=== PATIENT | female | born 1995 | race Caucasian/White ===

== ENCOUNTER 2022-05-20 11:32 | Outpatient (REF) | payer OTHER, SELFPAY ==
[2022-05-20 14:01] LABS: MANUAL DIFF FLAG NO
[2022-05-20 14:07] LABS: Basophils Percent Auto 0.3 % (0-2); Eosinophils Absolute Auto 0.2 X10*3/uL (0.0-0.4); Hematocrit 41.9 % (37.0-47.0); Hemoglobin 13.8 g/dl (12.0-16.0); Imm Gran Abs Auto 0.02 X10*3/uL (0.00-0.03); Imm Gran Pct Auto 0.2 % (0.0-0.4); Lymphocytes Absolute Auto 3.2 X10*3/uL (1.2-4.9); Mean Corpuscular HGB Conc 32.9 g/dl (31.0-35.0); Mean Corpuscular Hemoglobin 29.6 pg (27.0-33.0); Mean Corpuscular Volume 89.7 fL (80.0-98.0); Mean Platelet Volume 12.8 fL (9.4-12.3); Monocytes Absolute Auto 0.7 X10*3/uL (0.1-1.2); Monocytes Percent Auto 6.6 % (2-11); Neutrophils Absolute Auto 6.6 x10*3/uL (2.0-8.3); Neutrophils Percent Auto 60.9 % (45-73); Platelet Count 186 X10*3/uL (160-400); Red Blood Count 4.67 X10*6/uL (4.20-5.50); Red Cell Distribution Width 12.3 % (11.0-16.0); White Blood Count 10.8 X10*3/uL (4.8-10.8)
[2022-05-20 14:19] LABS: Alanine Aminotransferase 24 U/L (0-31); Anion Gap 13 (12-20); Aspartate Amino Transferase 15 U/L (5-31); Blood Urea Nitrogen 12 mg/dL (9-16); Calcium 9.4 mg/dL (8.4-10.2); Carbon Dioxide 24 mmol/L (22-29); Chloride 106 mmol/L (96-108); Cholesterol 181 mg/dL; Estimated Glomerular Filt Rate > 60; Glucose Fasting 103 mg/dL (60-99); HDL Cholesterol 57 mg/dL; LDL Cholesterol Calculated 108 mg/dl; Potassium 4.5 mmol/L (3.3-5.1); Sodium 138 mmol/L (135-145); Triglycerides 84 mg/dL
[2022-05-20 14:41] LABS: Vitamin D 25-OH Total 15.3 ng/mL (>30)
== END 2022-05-20 11:33 | disposition home or self-care (01) ==
LOC: HO.HMGCLDS 11:32
PROVIDERS: PCP Internal Medicine; Visit Provider Internal Medicine
DX: Z00.01 Encounter for general adult medical examination with abnormal findings (principal); G40.909 Epilepsy, unspecified, not intractable, without status epilepticus
CPT/HCPCS: 36415; 80048; 80061; 82306; 84450; 84460; 85025

== ENCOUNTER 2022-09-21 15:33 | Outpatient (REF) | payer OTHER, SELFPAY ==
[2022-09-22 04:54] LABS: CT PCR NOT DETECTED (Not Detect.); NG PCR NOT DETECTED (Not Detect.)
== END 2022-09-21 15:34 | disposition home or self-care (01) ==
LOC: HO.LNP 15:33
PROVIDERS: Visit Provider Advanced Practice Midwife
DX: Z01.419 Encounter for gynecological examination (general) (routine) without abnormal findings (principal)
CPT/HCPCS: 87491; 87591; 88142

== ENCOUNTER 2022-11-20 10:50 | Outpatient (AMB) | payer OTHER, SELFPAY ==
[2022-11-20 10:55] VITALS: BP 108/66; PULSE 76; O2SAT 98; BMI 33.0
--- NOTE | 2022-11-20 10:55 | A.OFFPC_ITS ---
Vital Signs 11/20/22 10:55 Height 5 ft 7 in Weight 211 lb BMI 33.0 BP 108/66 Blood Pressure Location Lt brachial Position Sitting Pulse 76 Pulse Source Pulse Oximeter Pulse Oximetry (%) 98 Oxygen Delivery Method Room Air Intake Visit Reasons: Asthma Intake Note: Pt is here today for a follow up visit. Pt states that she has been having trouble with her asthma. Allergies No Known Allergies Allergy (Verified 09/24/23 14:42) Medication List - Last Reconciled 11/20/22 by Nena Velez MD albuterol sulfate 90 mcg/actuation 2 puffs PO Q4-6H PRN albuterol sulfate 2.5 mg (3 mL) inhalation QID PRN cholecalciferol (vitamin D3) 1,250 mcg PO QWEEK 90 days fluticasone propionate 50 mcg/actuation 1 spray intranasal BID levetiracetam (Keppra) 500 mg PO BID levocetirizine (Allergy Relief (levocetirizine)) 5 mg PO QPM PRN nebulizers use As directed every 6 hours as needed for bronchospasm/wheezing Symbicort 160-4.5 mcg/actuation (budesonide-formoterol) 2 puffs inhalation Q12H NS Tobacco use date assessed: 11/20/22 HPI Asthma HPI Details 28-year-old lady here today complaining of increasing frequency of her asthma attacks. She has only been using albuterol inhaler which affords only temporary relief. This initially started with runny nose and postnasal drainage with progressed down to her lower airways. [facility] Medical History Bipolar disorder COVID-19 vaccination declined Mild persistent asthma Seizure disorder Surgical History No pertinent past surgical history Family History Father Substance use disorder Mental health disorder Bipolar disorder Mother Mental health disorder Bronchial asthma Diabetes Brother Bronchial asthma Maternal Grandmother Lymphoma Diabetes Maternal Aunt Diabetes Social History Household Members Other:: partner Housing: Condominium Alcohol intake: current Alcohol intake frequency: holidays/special occasions only Patient Tobacco Use Status: Never used Tobacco e-Cigarette/Vaping Use: Never Used Substance Use Type: Marijuana service: No Current occupational status: employed Current occupation: [employer] Sexual orientation: Lesbian/Dobson/Homosexual Gender identity: Female Cognitive needs: No Hearing needs: No Vision needs: No Questionnaire Thrive Questionnaire Date Thrive assessed: 05/20/22 BLUE-7 AMB Questionnaire BLUE-7 Date BLUE - 7 assessed: 05/20/22 Source: Developed by Drs. Rigo Johnson, Mckenzie Espinoza, Troy Amador and colleagues, with an educational michael from [employer]. Asthma Control Questionnaire In the past 4 weeks, how much of the time did your asthma keep you from getting as much done at work, school or at home?: Most of the time During the past 4 weeks, how often have you had shortness of breath?: More than once a day During the past 4 weeks, how often did your asthma symptoms wake you up at night or earlier than usual in the morning?: 4 or more nights a week During the past 4 weeks, how often have you had to use your rescue inhaler or nebulizer medication?: More than 3 times per day How would you rate your asthma control during the past 4 weeks?: Poorly controlled Score: 7 Review of Systems Const Denies body aches, Denies fatigue, Denies fever(s), Denies headache(s) and Denies weakness ENT Denies headache(s), Denies nasal discharge and Denies sore throat Card Denies chest pain, Denies lightheadedness and Denies palpitations Resp Denies chest congestion, Reports cough and Reports wheezing GI Denies abdominal pain, Denies change in bowel habits and Denies heartburn Skin/Breast Denies rash Neuro Details: Followed by [facility] neurology currently on Keppra, last seizure episode was more than a year ago, negative EEG results Denies headache(s) and Denies weakness Endo Denies fatigue, Denies polydipsia, Denies polyuria and Denies palpitations Rohan/Lymph Denies easy bruising Aller/Immun Reports seasonal rhinorrhea and Reports wheezing Physical exam (Primary Care) Vital Signs: Last Vital Signs Pulse 76 11/20/22 10:55 BP 108/66 11/20/22 10:55 Pulse Ox 98 11/20/22 10:55 Oxygen Delivery Method Room Air 11/20/22 10:55 BMI result Body Mass Index 33.0 BMI Assessment/Plan discussion: High BMI High, discussed plan: lifestyle, weight reduction, dietary and physical activity Tobacco/Smoking Status: Tobacco use Status Tobacco use date assessed 11/20/22 11/20/22 11:01 Patient Tobacco Use Status Never used Tobacco 11/20/22 10:56 e-Cigarette/Vaping Use Never Used 11/20/22 10:56 Thrive Assessment: Date of Thrive Assessment Date Thrive assessed 05/20/22 11/20/22 10:56 Const General: comfortable, no acute distress and alert Orientation/consciousness: patient oriented x3 HENMT Head: Yes normocephalic Ears: hearing grossly normal bilaterally, TM's normal bilaterally and EAC's normal General nose exam: Normal external nose present and No nasal discharge present Face and sinus: Yes sinuses nontender and Yes face symmetric Mouth: Normal oral and palatal mucosa present, tongue normal, oropharynx normal and moist mucous membranes Neck Neck: Yes normal visual inspection, Yes full ROM, Yes no lymphadenopathy, Yes no meningeal signs and Yes supple Resp Effort & Inspection: normal respiratory effort and able to speak in complete sentences Auscultation: clear to auscultation bilaterally Cardio Palpation: normal PMI Rate: regular rate Rhythm: regular rhythm Heart sounds: S1 normal heart sound present and S2 normal heart sound present GI Palpation (GI): Soft to palpation, nontender, no guarding and no masses Auscultation: normal bowel sounds General: Yes no CVA tenderness and Yes deferred Back/Spine/Pelvis Back: no CVA tenderness and No back tenderness Skin General skin exam: no rashes or lesions noted Neuro General: patient oriented x3, gait normal, moves all extremities, Normal light touch and pain sensation, no meningeal signs, no focal motor deficits and CN's II-XI intact bilaterally Extrem General: Yes full ROM, Yes no joint enlargement, Yes no pedal edema, Yes no calf tenderness and Yes normal gait Office Procedures Flu Questionnaire Does the patient have a severe egg allergy?: No Does the patient have severe life threatening allergies?: No Does the patient have a fever or illness today?: No Has the patient ever had Guillain-Dilley Syndrome?: No Has the patient ever had any past reaction to a flu shot?: No Immunizations flu vacc [id number] 6mos up(PF) 60 mcg(15 mcgx4)/0.5 mL IM syringe Performing Provider: Nena Velez MD [place] [facility] [facility] Administered by: Hillary Pacheco RN on 11/20/22 11:42 Dose Route Admin Location Dispensed Lot Number Expiration Date [employer] 0.5 mL IM Right Deltoid 0.5 mL [id number] 05/21/23 [id number] [employer] VIS Given Date VIS Provided VIS Publication Date 11/20/22 Single Vaccine 21 Eligibility Eligibility Date Funding Source Not [facility] Eligible 11/20/22 Private Assessment and Plan Assessment & Plan (1) Mild persistent asthma: Code(s): J45.30 - Mild persistent asthma, uncomplicated Qualifiers: Asthma complication type: uncomplicated Qualified Code(s): J45.30 - Mild persistent asthma, uncomplicated Plan: Started started her on Symbicort 160-4.5 mcg, to take 2 puffs twice a day , at least a minute apart each cough, instructed on proper use of inhaler, use it with spacer. Will give flu vaccine today, advised to get COVID vaccination b ooster, but patient declined. Up-to-date with her pneumococcal vaccine. Prescribed nebulizer to use at home for acute attacks of asthma with bronchospasm. Prescription sent for albuterol sulfate nebulized (2) COVID-19 vaccination declined: Code(s): Z28.21 - Immunization not carried out because of patient refusal (3) Needs flu shot: Code(s): Z23 - Encounter for immunization Plan: Flu vaccine given Orders: Orders Influenza [id number] Immunization 11/20/22 Z23 - Encounter for immunization Medications: New fluticasone propionate 50 mcg/actuation 1 spray intranasal BID 16 grams 3RF Symbicort 160-4.5 mcg/actuation (budesonide-formoterol) 2 puffs inhalation Q12H 10.2 grams 2RF NS J45.30 - Mild persistent asthma, uncomplicated nebulizers use As directed every 6 hours as needed for bronchospasm/wheezing 1 ea 0RF J45.30 - Mild persistent asthma, uncomplicated levocetirizine (Allergy Relief (levocetirizine)) 5 mg PO QPM PRN 30 tabs 5RF allergy symptoms albuterol sulfate 2.5 mg (3 mL) inhalation QID PRN 90 mL 0RF shortness of breath or wheezing J45.30 - Mild persistent asthma, uncomplicated Coding Level of Care Code Est Pt Level 3 (99595) Diagnoses Mild persistent asthma without complication J45.30 Asthma complication type: uncomplicated COVID-19 vaccination declined Z28.21 Needs flu shot Z23
== END 2022-11-20 12:43 | disposition home or self-care (01) ==
PROVIDERS: PCP Internal Medicine; Visit Provider Internal Medicine
DX: J45.30 Mild persistent asthma, uncomplicated (principal); Z28.21 Immunization not carried out because of patient refusal; Z23 Encounter for immunization
CPT/HCPCS: 99213

== ENCOUNTER 2023-06-21 12:34 | Outpatient (AMB) | payer OTHER, SELFPAY ==
[2023-06-21 12:42] VITALS: BP 112/66; PULSE 74; O2SAT 98; BMI 34.3
--- NOTE | 2023-06-21 12:42 | MHC.PC.OV ---
Vital Signs 06/21/23 12:42 Height 5 ft 7 in Weight 219 lb BMI 34.3 BP 112/66 Blood Pressure Location Rt brachial Position Sitting Pulse 74 Pulse Source Pulse Oximeter Pulse Oximetry (%) 98 Oxygen Delivery Method Room Air Intake Visit Reasons: Annual PE Intake Note: Pt is here today for her PE Is last menstrual period known: Yes Last menstrual period: 05/29/23 Allergies No Known Allergies Allergy (Verified 06/21/23 13:17) Medication List - Last Reconciled 06/21/23 by Nena Velez MD albuterol sulfate 90 mcg/actuation 2 puffs PO Q4-6H PRN albuterol sulfate 2.5 mg (3 mL) inhalation QID PRN fluticasone propionate 50 mcg/actuation 1 spray intranasal BID levetiracetam (Keppra) 500 mg PO BID levocetirizine (Allergy Relief (levocetirizine)) 5 mg PO QPM PRN nebulizers use As directed every 6 hours as needed for bronchospasm/wheezing Symbicort 160-4.5 mcg/actuation (budesonide-formoterol) 2 puffs inhalation Q12H NS Tobacco use date assessed: 06/21/23 Dental Screening Dental Screen Date: 06/21/23 Did you have a dental visit in the last 12 months?: Yes Did you have a dental problem in the last 6 months where you did not have access to dental care?: Yes Was dental information given to patient?: Patient has dentist HPI Annual PE HPI Details 8-year-old lady here today for physical exam. She has bronchial asthma, which patient states is not very well controlled, has to take her albuterol inhaler on a daily basis over the last several weeks due to episodes of cough and wheezing. She has not been using Symbicort as she was unable to afford prescription due to his high cost. She currently has seizure disorder followed by [facility] neurology, Dr. Feldman, has not had any seizure episodes now for the last year. She has been diagnosed to have bipolar disorder, but has not been seeing her therapist anymore due to scheduling conflicts with her appointments and work, would like to be referred to a different therapist and eventually wants to see a psychiatrist HPI Comments History of Present Illness Details 28-year-old lady with mild persistent asthma, anxiety disorder , and history of seizure disorder, here today for physical exam. PFSH Medical History (Updated 06/22/23 @ 02:17 by Nena Velez MD) Bipolar disorder COVID-19 vaccination declined Mild persistent asthma Seizure disorder Surgical History No pertinent past surgical history Family History Father Substance use disorder Mental health disorder Bipolar disorder Mother Mental health disorder Bronchial asthma Diabetes Brother Bronchial asthma Maternal Grandmother Lymphoma Diabetes Social History Household Members Other:: partner Housing: Condominium Alcohol intake: current Alcohol intake frequency: holidays/special occasions only Patient Tobacco Use Status: Never used Tobacco e-Cigarette/Vaping Use: Never Used Substance Use Type: Marijuana service: No Current occupational status: employed Current occupation: [employer] Sexual orientation: Lesbian/Dobson/Homosexual Gender identity: Female Cognitive needs: No Hearing needs: No Vision needs: No Female Reproductive History Menstrual Date of last menstrual period: 05/29/23 Questionnaire PHQ-9 Over the last 2 weeks, how often have you been bothered by any of the following problems? 1. Little interest or pleasure in doing things: more than half the days 2. Feeling down, depressed, or hopeless: nearly every day 3. Trouble falling or staying asleep, or sleeping too much: nearly every day 4. Feeling tired or having little energy: nearly every day 5. Poor appetite or overeating: nearly every day 6. Feeling bad about yourself - or that you are a failure or have let yourself or your family down: more than half the days 7. Trouble concentrating on things, such as reading the newspaper or watching television: several days 8. Moving or speaking so slowly that other people could have noticed. Or the opposite - being so fidgety or restless that you have been moving around a lot more than usual: several days 9. Thoughts that you would be better off or of hurting yourself in some way: not at all Total score: 18 Depression Screening Interpretation: Positive Depression Screening Follow-up: Existing condition and Community Mental Health Worker F/U 13014 - PHQ-9 Billing: Yes Source: Developed by Drs. Rigo Johnson, Troy Lebron and colleagues, with an educational michael from [employer]. Thrive Questionnaire Date Thrive assessed: 06/21/23 I am a: Patient What is your living situation today?: I have a steady place to live Within the past 12 months, did the food you bought not last and you didn't have the money to get more?: Never true Within the past 12 months, did you worry whether your food would run out before you got money to buy more?: Never true Do you have trouble paying for medicines?: Yes Do you have trouble getting transportation to medical appointments?: No Do you have trouble paying your heating and electricity bill?: No Do you have trouble taking care of your child, family member or friend?: No Do you have trouble with day-to-day activities such as bathing, preparing meals, shopping, managing finances, etc.?: No Are you currently unemployed and looking for a job?: No Are you interested in more education?: No AUDIT C Alcohol Use Questionnaire (AUDIT-C) 1. How often do you have a drink containing alcohol?: Monthly or less 2. How many drinks containing alcohol do you have on a typical day when you are drinking?: 1 or 2 3. How often do you have six or more drinks on one occasion?: Never Total Score: 1 BLUE-7 AMB Questionnaire BLUE-7 Date BLUE - 7 assessed: 06/21/23 Feeling nervous, anxious, or on edge: 3 = Nearly every day Not being able to stop or control worryin = Nearly every day Worrying too much about different things: 3 = Nearly every day Trouble relaxin = Nearly every day Being so restless that it is hard to sit still: 1 = Several days Becoming easily annoyed or irritable: 2 = More than half the days Feeling afraid as if something awful might happen: 2 = More than half the days Total BLUE-7 score (0-4 normal; 5-9 mild; 10-14 moderate; 15-21 severe): 17 Source: Developed by Drs. Rigo Johnson, Troy Lebron and colleagues, with an educational michael from [employer]. BLUE-7 Assessment Billing BLUE-7 Assessment Tool: BLUE-7 Assessment 30539 Review of Systems Const Denies body aches, Denies fatigue, Denies fever(s), Denies headache(s) and Denies weakness Eyes Denies change in vision ENT Denies headache(s), Denies nasal congestion, Denies nasal discharge and Denies sore throat Card Denies chest pain, Denies lightheadedness and Denies palpitations Resp Denies chest congestion GI Denies abdominal pain, Denies change in bowel habits and Denies heartburn Denies hematuria, Denies urinary frequency, Denies dysuria and Denies urinary urgency Musc Reports no additional complaints Skin/Breast Denies breast pain, Denies breast mass, Denies lesions and Denies rash Neuro Details: Followed by [facility] neurology currently on Keppra, last seizure episode was more than a year ago, negative EEG results Denies headache(s) and Denies weakness Psych Reports as per HPI Endo Denies fatigue, Denies polydipsia, Denies polyuria and Denies palpitations Rohan/Lymph Denies easy bruising Aller/Immun Reports seasonal rhinorrhea Physical exam (Primary Care) Vital Signs: Last Vital Signs Pulse 74 06/21/23 12:42 BP 112/66 06/21/23 12:42 Pulse Ox 98 06/21/23 12:42 Oxygen Delivery Method Room Air 06/21/23 12:42 BMI result Body Mass Index 34.3 BMI Assessment/Plan discussion: High BMI High, discussed plan: lifestyle, weight reduction, dietary and physical activity Tobacco/Smoking Status: Tobacco use Status Tobacco use date assessed 06/21/23 06/21/23 12:46 Patient Tobacco Use Status Never used Tobacco 06/21/23 12:42 e-Cigarette/Vaping Use Never Used 06/21/23 12:42 PHQ-9: PHQ-9 Score PHQ-9: Total score 19 06/21/23 13:45 Depression Screening Interpretation: Positive Depression Screening Follow-up: Existing condition and Community Mental Health Worker F/U Thrive Assessment: Date of Thrive Assessment Date Thrive assessed 06/21/23 06/21/23 12:46 Const General: cooperative, healthy appearing, comfortable, no acute distress and alert Orientation/consciousness: patient oriented x3 HENMT Head: Yes normocephalic Ears: hearing grossly normal bilaterally, TM's normal bilaterally and EAC's normal General nose exam: Normal external nose present and No nasal discharge present Face and sinus: Yes sinuses nontender and Yes face symmetric Mouth: Normal oral and palatal mucosa present, tongue normal, oropharynx normal and moist mucous membranes Eyes General: appearance normal, both eyes and all related structures Neck Neck: Yes normal visual inspection, Yes full ROM, Yes no lymphadenopathy, Yes no meningeal signs and Yes supple Chest Breast/axilla inspection: normal inspection of the breasts Breast/axilla palpation: normal palpation of the breasts and other (Positive nipple piercing) Resp Effort & Inspection: normal respiratory effort and able to speak in complete sentences Auscultation: clear to auscultation bilaterally Cardio Palpation: normal PMI Rate: regular rate Rhythm: regular rhythm Heart sounds: S1 normal heart sound present and S2 normal heart sound present GI Palpation (GI): Soft to palpation, nontender, no guarding and no masses Auscultation: normal bowel sounds General: Yes no CVA tenderness and Yes deferred Back/Spine/Pelvis Back: no CVA tenderness and No back tenderness Skin General skin exam: no rashes or lesions noted Neuro General: patient oriented x3, gait normal, moves all extremities, Normal light touch and pain sensation, no meningeal signs, no focal motor deficits and CN's II-XI intact bilaterally Extrem General: Yes full ROM, Yes no joint enlargement, Yes no pedal edema, Yes no calf tenderness and Yes normal gait Psych Appearance: grossly normal and well kempt Mental Status: mental status grossly normal Speech and movement: Normal speech and movement present Affect: normal affect Attitude: cooperative Thought process: Normal thought process present Thought content: Normal thought content present Assessment and Plan Assessment & Plan (1) Annual visit for general adult medical examination with abnormal findings: Code(s): Z00.01 - Encounter for general adult medical examination with abnormal findings Plan: Will check appropriate labs. Recommended dental visit every 6 months and regular eye exams, at least every 2 years. Take adequate calcium in diet and vitamin-D 3 at 2000 IU per cap once a day, in addition to weight-bearing exercises to help maintain good muscle tone and weight control. Instructed to do self-breast exam, and recommended to get yearly mammogram, starting at age 40. Currently being seen at [facility] [place] [facility] for her routine Pap and pelvic exam. Declines getting COVID vaccinations but is up-to-date with her pneumococcal vaccine and reminded to get yearly flu vaccine, up-to-date with her Tdap. (2) Mild persistent asthma: Code(s): J45.30 - Mild persistent asthma, uncomplicated Plan: Discontinue Symbicort, not covered, prescription sent for Advair inhaler 115/21 mcg per inhalation, 2 inhalations every 12 hours , advised to get at least a 1 minute in between inhalation and rinse mouth after use. Has albuterol inhaler as needed for episodes of acute episodes of bronchospasm and wheezing. Up-to-date with her pneumonia vaccination reminded to get yearly flu shot, declined getting COVID vaccine (3) Seizure disorder: Comment: sees [facility] , Dr Feldman, started Code(s): G40.909 - Epilepsy, unspecified, not intractable, without status epilepticus Plan: Currently on levetiracetam, followed by Dr. Feldman at [facility] neurology, has not had any seizure episodes for more than a year now. (4) Impaired fasting glucose: Code(s): R73.01 - Impaired fasting glucose Plan: Your fasting blood sugars elevated above 100 mg/dL. Impaired glucose metabolism O2 at risk for developing diabetes mellitus type 2, as well as heart attack and stroke later on. Lifestyle changes at just weight loss, healthy eating habits, and regular exercise are important, and can prevent the progression to diabetes (5) Bipolar disorder: Code(s): F31.9 - Bipolar disorder, unspecified Plan: Referred to Laureen Panchal for assistance in getting in to be seen by another therapist and psychiatry (6) COVID-19 vaccination declined: Code(s): Z28.21 - Immunization not carried out because of patient refusal Orders: Orders Vitamin D 25-OH Total 06/21/23 F41.9 - Anxiety disorder, unspecified, G40.909 - Epilepsy, unspecified, not intractable, without status epilepticus, J45.30 - Mild persistent asthma, uncomplicated, R73.01 - Impaired fasting glucose, Z00.01 - Encounter for general adult medical examination with abnormal findings Hemoglobin A1c 06/21/23 F41.9 - Anxiety disorder, unspecified, G40.909 - Epilepsy, unspecified, not intractable, without status epilepticus, J45.30 - Mild persistent asthma, uncomplicated, R73.01 - Impaired fasting glucose, Z00.01 - Encounter for general adult medical examination with abnormal findings Alanine Aminotransferase 06/21/23 F41.9 - Anxiety disorder, unspecified, G40.909 - Epilepsy, unspecified, not intractable, without status epilepticus, J45.30 - Mild persistent asthma, uncomplicated, R73.01 - Impaired fasting glucose, Z00.01 - Encounter for general adult medical examination with abnormal findings Aspartate Amino Transferase 06/21/23 F41.9 - Anxiety disorder, unspecified, G40.909 - Epilepsy, unspecified, not intractable, without status epilepticus, J45.30 - Mild persistent asthma, uncomplicated, R73.01 - Impaired fasting glucose, Z00.01 - Encounter for general adult medical examination with abnormal findings Basic Metabolic Panel Fasting 06/21/23 F41.9 - Anxiety disorder, unspecified, G40.909 - Epilepsy, unspecified, not intractable, without status epilepticus, J45.30 - Mild persistent asthma, uncomplicated, R73.01 - Impaired fasting glucose, Z00.01 - Encounter for general adult medical examination with abnormal findings Lipid Panel 06/21/23 F41.9 - Anxiety disorder, unspecified, G40.909 - Epilepsy, unspecified, not intractable, without status epilepticus, J45.30 - Mild persistent asthma, uncomplicated, R73.01 - Impaired fasting glucose, Z00.01 - Encounter for general adult medical examination with abnormal findings Medications: New Advair HFA 115-21 mcg/actuation (fluticasone propion-salmeterol) Rinse mouth after use 2 puffs inhalation Q12H 12 grams 5RF NS J45.30 - Mild persistent asthma, uncomplicated Refilled albuterol sulfate 90 mcg/actuation 2 puffs PO Q4-6H PRN 8.5 grams 5RF shortness of breath or wheezing J45.30 - Mild persistent asthma, uncomplicated Discontinued Symbicort 160-4.5 mcg/actuation (budesonide-formoterol) Discontinued Reason: Doctor's Order 2 puffs inhalation Q12H 10.2 grams 2RF NS J45.30 - Mild persistent asthma, uncomplicated Coding Level of Care Code Est Pt Prev Care 18-39y(80014) Diagnoses Annual visit for general adult medical examination with abnormal findings Z00.01 Mild persistent asthma J45.30 Seizure disorder G40.909 Impaired fasting glucose R73.01 Bipolar disorder F31.9 COVID-19 vaccination declined Z28.21 Additional Codes BLUE-7 Assessment Billing - BLUE-7 Assessment Tool: BLUE-7 Assessment 14744 ([id number])
== END 2023-06-21 14:37 | disposition home or self-care (01) ==
LOC: HO.HMGC 12:34
PROVIDERS: PCP Internal Medicine; Visit Provider Internal Medicine
DX: Z00.01 Encounter for general adult medical examination with abnormal findings (principal); J45.30 Mild persistent asthma, uncomplicated; G40.909 Epilepsy, unspecified, not intractable, without status epilepticus; F31.9 Bipolar disorder, unspecified; R73.01 Impaired fasting glucose; Z28.21 Immunization not carried out because of patient refusal
CPT/HCPCS: 99395

== ENCOUNTER 2023-09-24 14:36 | Outpatient (AMB) | payer OTHER, SELFPAY ==
--- NOTE | 2023-09-24 14:38 | A.OFFVIS_ITS ---
Intake Vital Signs 09/24/23 14:42 Height 5 ft 7 in Weight 223 lb BMI 34.9 BP 116/72 Intake Visit Reasons: Annual Intake Note: no concerns [employer] Caller Required: No Information Interpreted: non-clinical & clinical Investment Sales Assistant: Investment Sales Assistant Present (Tere MERCADO) Accompanied by: Self / Same As Patient Allergies No Known Allergies Allergy (Verified 09/24/23 14:42) Is last menstrual period known: Yes Last menstrual period: 09/23/23 HPI HPI Comments History of Present Illness Details She is a premenopausal woman presenting for annual exam. 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 She attempts to eat healthy and stays active with exercise. Currently sexually active with female partner only. Reports monthly periods. Denies vaginal itching and irritation. STD screening offered; she declines. Denies family hx of breast, colon and ovarian cancer. Last pap smear 2021. [facility] Medical History Bipolar disorder COVID-19 vaccination declined Mild persistent asthma Seizure disorder Surgical History No pertinent past surgical history Family History Father Substance use disorder Mental health disorder Bipolar disorder Mother Mental health disorder Bronchial asthma Diabetes Brother Bronchial asthma Maternal Grandmother Lymphoma Diabetes Maternal Aunt Diabetes Social History Household Members Other:: partner Housing: Condominium Alcohol intake: current Alcohol intake frequency: holidays/special occasions only Patient Tobacco Use Status: Never used Tobacco e-Cigarette/Vaping Use: Never Used Substance Use Type: Marijuana service: No Current occupational status: employed Current occupation: [employer] Sexual orientation: Lesbian/Dobson/Homosexual Gender identity: Female Cognitive needs: No Hearing needs: No Vision needs: No Female Reproductive History Menstrual Date of last menstrual period: 09/23/23 Total pregnancies: 0 Date of last pap smear: 09/22/22 Review of Systems Const All systems reviewed & are unremarkable except as noted in HPI and below Physical Exam Vital Signs: Last Vital Signs BP 116/72 09/24/23 14:42 BMI result Body Mass Index 34.9 Const General: cooperative, healthy appearing, no acute distress, well developed and alert Orientation/consciousness: patient oriented x3 HEENT Head: Yes normal to inspection Eyes General: appearance normal, both eyes and all related structures Neck Neck: Yes normal visual inspection Thyroid: Thyroid normal Chest Chest palpation & inspection: normal inspection of the chest Breast/axilla inspection: normal inspection of the breasts (no puckering, dimpling, peau de orange, retraction, discharge, masses) Breast/axilla palpation: normal palpation of the breasts Resp Effort & Inspection: normal respiratory effort GI Inspection: Yes normal to inspection Palpation (GI): Soft to palpation Rectal Exam - Female: deferred General: Yes bladder normal to palpation External Female Exam: normal external appearance and normal appearance of the urethra Speculum Exam - Vagina: normal appearance of the vagina, normal palpation, normal vaginal discharge and vaginal bleeding (small blood clot noted- started menses yesterday) Speculum Exam - Cervix: normal appearance of the cervix and normal palpation Bimanual exam- vagina & uterus: normal bimanual exam, normal palpation, uterine size normal, bladder normal to palpation and normal palpation Bimanual Exam- Adnexa, other: normal adnexae and no masses OB/external & speculum: vaginal bleeding (small blood clot noted- started menses yesterday) Skin General skin exam: no rashes or lesions noted Neuro General: patient oriented x3 Cognition (Neuro): normal cognition Extrem General: Yes normal to inspection Psych Attitude: cooperative Thought process: Normal thought process present Assessment & Plan Assessment & Plan (1) Encounter for well woman exam: Code(s): Z01.419 - Encounter for gynecological examination (general) (routine) without abnormal findings Plan: Discussed: Current recommendations for pap smears per ASCCP guidelines. Breast awareness and periodic self breast exams. Maintaining a healthy lifestyle including a well balanced diet and routine exercise. All of her questions and concerns were addressed to the best of my ability. RTO in one year for AG. Coding Level of Care Code Est Pt Prev Care 18-39y(97496) Diagnoses Encounter for well woman exam Z01.419
[2023-09-24 14:42] VITALS: BP 116/72; BMI 34.9
== END 2023-09-24 15:02 | disposition home or self-care (01) ==
PROVIDERS: Visit Provider Advanced Practice Midwife
DX: Z01.419 Encounter for gynecological examination (general) (routine) without abnormal findings (principal)
CPT/HCPCS: 99395

== ENCOUNTER → 2023-09-24 14:36 | Outpatient (BNVA) | payer OTHER, SELFPAY | PROVIDERS: Visit Provider Advanced Practice Midwife ==

== ENCOUNTER 2025-07-03 12:28 | Outpatient (AMB) | payer OTHER, SELFPAY ==
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
[2025-07-03 12:44] VITALS: BP 100/64; PULSE 78; RESP 16; TEMP 36.9; O2SAT 98; BMI 35.4
== END 2025-07-03 13:16 | disposition home or self-care (01) ==
LOC: HO.HMCC 12:29
PROVIDERS: PCP Internal Medicine; Visit Provider Internal Medicine
DX: Z00.01 Encounter for general adult medical examination with abnormal findings (principal); G40.909 Epilepsy, unspecified, not intractable, without status epilepticus; J45.30 Mild persistent asthma, uncomplicated; F41.9 Anxiety disorder, unspecified; Z71.89 Other specified counseling; Z00.00 Encounter for general adult medical examination without abnormal findings